=== PATIENT | female | born 1980 | race Caucasian/White ===

== ENCOUNTER 2019-01-22 12:53 | Emergency (ER) | payer BC, OTHER ==
[~2019-01-22] VITALS: Ht 170.2 cm; Wt 89.8 kg
--- NOTE | 2019-01-22 13:13 | ED Lower Extremity ---
General Chief Complaint: Lower Extremity Stated Complaint: R LEG SWELLING,HX OF BLOOD CLOTS Nursing Triage Note: PT STATES HX OF BLOOD CLOT, CC OF PAIN IN RT ANKLE/FOOT WITH SWELLING SINCE YESTERDAY. Nursing Sepsis Screen: No Definite Risk Source: patient Exam Limitations: no limitations History of Present Illness Date Seen by Provider: Jan 22, 2019 Time Seen by Provider: 13:00 Initial Comments Here with report of concerns of blood clot to the right lower extremity. 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 Does have swelling around the right foot and ankle. Is a little tenderness to her calf area when flexing her foot. Has had history of blood clots in the left lower extremity that started similar. Previously on Eliquis but not currently on that. Denies recent injury or other concerns otherwise. Onset: yesterday Severity: moderate Pain/Injury Location: right leg, right foot Method of Injury: unknown Modifying Factors: Worse With Movement; Improves With Rest Allergies and Home Medications Allergies Coded Allergies: latex (Verified Allergy, Unknown, 01/22/19) Patient Home Medication List Home Medication List Reviewed: Yes Review of Systems Constitutional: No chills, No fever Respiratory: no symptoms reported Cardiovascular: no symptoms reported Gastrointestinal: no symptoms reported Musculoskeletal: see HPI, joint pain, muscle pain Skin: change in color; No lesions Past Jjrxtnl-Yyexod-Rxdujr Hx Past Med/Social Hx: Reviewed Nursing Past Med/Soc Hx Patient Social History Alcohol Use: Occasionally Uses Recreational Drug Use: No Smoking Status: Former Smoker Recent Foreign Travel: No Contact w/Someone Who Travel: No Recent Infectious Disease Expo: No Past Medical History Surgeries: Yes Abdominal, Tubal Ligation Respiratory: No Cardiac: Yes Deep Vein Thrombosis Neurological: No [employer] History: Tubal Ligation Gastrointestinal: No Musculoskeletal: No Endocrine: No Cancer: No Psychosocial: No Family Medical History Reviewed Nursing Family Hx No Pertinent Family Hx Physical Exam Vital Signs Vital Signs - First Documented 01/22/19 13:01 Temp 98.6 Pulse 83 Resp 20 B/P (MAP) 154/97 (116) Pulse Ox 98 O2 Delivery Room Air Capillary Refill : Less Than 3 Seconds Height, Weight, BMI Height: 5'7.00" Weight: 198lbs. oz. 89.078977tb; BMI Method:Stated General Appearance: WD/WN, no apparent distress Cardiovascular: regular rate, rhythm, no murmur Respiratory: lungs clear, normal breath sounds Legs: left leg non-tender, left leg normal inspection, left leg normal range of motion; right leg swelling, right leg other (mild diffuse around the distal leg/ankle and heel of the foot. Mild swelling noted in the same distribution.) Feet: left foot non-tender, left foot normal inspection; bilateral foot normal range of motion; right foot swelling Neurologic/Psychiatric: alert, oriented x 3 Skin: normal color, warm/dry Progress/Results/Core Measures Results/Orders Lab Results Laboratory Tests Test 01/22/19 13:15 Range/Units White Blood Count 7.2 4.3-11.0 10^3/uL Red Blood Count 4.32 L 4.35-5.85 10^6/uL Hemoglobin 12.4 11.5-16.0 G/DL Hematocrit 37 35-52 % Mean Corpuscular Volume 87 80-99 FL Mean Corpuscular Hemoglobin 29 25-34 PG Mean Corpuscular Hemoglobin Concent 33 32-36 G/DL Red Cell Distribution Width 14.7 H 10.0-14.5 % Platelet Count 263 130-400 10^3/uL Mean Platelet Volume 10.4 7.4-10.4 FL Neutrophils (%) (Auto) 60 42-75 % Lymphocytes (%) (Auto) 32 12-44 % Monocytes (%) (Auto) 6 0-12 % Eosinophils (%) (Auto) 2 0-10 % Basophils (%) (Auto) 0 0-10 % Neutrophils # (Auto) 4.3 1.8-7.8 X 10^3 Lymphocytes # (Auto) 2.3 1.0-4.0 X 10^3 Monocytes # (Auto) 0.4 0.0-1.0 X 10^3 Eosinophils # (Auto) 0.2 0.0-0.3 10^3/uL Basophils # (Auto) 0.0 0.0-0.1 10^3/uL Sodium Level 141 135-145 MMOL/L Potassium Level 3.8 3.6-5.0 MMOL/L Chloride Level 109 H 98-107 MMOL/L Carbon Dioxide Level 24 21-32 MMOL/L Anion Gap 8 5-14 MMOL/L Blood Urea Nitrogen 8 7-18 MG/DL Creatinine 0.97 0.60-1.30 MG/DL Estimat Glomerular Filtration Rate > 60 BUN/Creatinine Ratio 8 Glucose Level 103 70-105 MG/DL Calcium Level 9.1 8.5-10.1 MG/DL Corrected Calcium 9.2 8.5-10.1 MG/DL Total Bilirubin 0.3 0.1-1.0 MG/DL Aspartate Amino Transf (AST/SGOT) 17 5-34 U/L Alanine Aminotransferase (ALT/SGPT) 14 0-55 U/L Alkaline Phosphatase 98 40-136 U/L Total Protein 6.8 6.4-8.2 GM/DL Albumin 3.9 3.2-4.5 GM/DL My Orders Orders - GUNJAN HARVEY MD Cbc With Automated Diff (01/22/19 13:06) Comprehensive Metabolic Panel (01/22/19 13:06) Us Venous Lower Ext Rt (01/22/19 13:06) Vital Signs/I&O 01/22/19 13:01 Temp 98.6 Pulse 83 Resp 20 B/P (MAP) 154/97 (116) Pulse Ox 98 O2 Delivery Room Air Blood Pressure Mean: 116 Progress Progress Note : Progress Note Seen and evaluated. Labs and ultrasound right lower extremity ordered. Monitor patient. 1430: No acute findings on ultrasound. Labs look okay as well. Patient will treat as if this is joint disorder but will add a baby aspirin daily given her multiple trips that she is taking and she'll follow with her Dr. in [place], [place]. Discharged home with return precautions. Patient verbalize understanding instructions and agreement with plan. Diagnostic Imaging Diagonstic Imaging: Ultrasound Plain Films/CT/US/NM/MRI: leg Comments [facility], [place] NAME: JOSUE KHAN [facility] REC#: [id number] PT STATUS: REG ER : 1980 PHYSICIAN: GUNJAN HARVEY MD ADMIT DATE: 01/22/19/ER Draft Date of Exam:01/22/19 US VENOUS LOWER EXT RT EXAM: US VENOUS LOWER EXT RT INDICATION: Right lower extremity pain and swelling. COMPARISON: None. TECHNIQUE: Duplex, limon-scale and color-flow imaging of the right lower extremity venous system was performed FINDINGS: The right common femoral vein, superficial femoral vein, profunda femoris, and popliteal veins are normal. These vessels show normal compressibility, color flow, and doppler augmentation. The deep calf veins demonstrate no distinct intraluminal thrombus where seen. IMPRESSION: Negative venous Doppler of the right lower extremity. Dictated on workstation # [id number] Dict: 01/22/19 1406 Trans: 01/22/19 1410 [facility] [id number] Interpreted by: ELLYN THOMAS MD Electronically signed by: Departure Impression Primary Impression: Swelling of right foot Additional Impression: Right ankle swelling Disposition: HOME, SELF-CARE Condition: Improved Departure-Patient Inst. Decision time for Depature: 14:36 Referrals: NO,LOCAL PHYSICIAN (PCP/Family) Primary Care Physician Patient Instructions: Dependent Edema (DC) Add. Discharge Instructions: All discharge instructions reviewed with patient and/or family. Voiced understanding. You may take ibuprofen 600 mg every 8 hours as needed for pain and swelling. You may take a baby aspirin daily to help prevent blood clots. Discussed this with y our doctor. You may take Tylenol/acetaminophen 1000 mg every 8 hours as needed for pain. Use elevation and ice packs as needed to reduce swelling in the foot. Wear comfortable shoes. Follow-up with your Dr. in a few days for recheck. Return for worse pain, fever, weakness, breathing problems, increased swelling or pain in the leg or other concerns as needed. GUNJAN HARVEY MD Jan 22, 2019 13:13
[2019-01-22 13:31] LABS: BASOPHILS % (AUTO) 0 % (0-10); EOSINOPHILS # (AUTO) 0.2 10^3/uL (0.0-0.3); EOSINOPHILS % (AUTO) 2 % (0-10); HEMATOCRIT 37 % (35-52); HEMOGLOBIN 12.4 G/DL (11.5-16.0); LYMPHOCYTES # (AUTO) 2.3 X 10^3 (1.0-4.0); LYMPHOCYTES % (AUTO) 32 % (12-44); MEAN CORPUSCULAR HEMOGLOBIN 29 PG (25-34); MEAN CORPUSCULAR HGB CONC 33 G/DL (32-36); MEAN CORPUSCULAR VOLUME 87 FL (80-99); MEAN PLATELET VOLUME 10.4 FL (7.4-10.4); MONOCYTES # (AUTO) 0.4 X 10^3 (0.0-1.0); MONOCYTES % (AUTO) 6 % (0-12); NEUTROPHILS # (AUTO) 4.3 X 10^3 (1.8-7.8); NEUTROPHILS % (AUTO) 60 % (42-75); PLATELET COUNT 263 10^3/uL (130-400); RED CELL DISTRIBUTION WIDTH 14.7 % (10.0-14.5); WHITE BLOOD COUNT 7.2 10^3/uL (4.3-11.0)
[2019-01-22 13:48] LABS: ALANINE AMINOTRANSFERASE 14 U/L (0-55); ALBUMIN 3.9 GM/DL (3.2-4.5); ALKALINE PHOSPHATASE 98 U/L (40-136); BILIRUBIN,TOTAL 0.3 MG/DL (0.1-1.0); BUN/CREATININE RATIO 8; CALCIUM 9.1 MG/DL (8.5-10.1); CARBON DIOXIDE 24 MMOL/L (21-32); CHLORIDE 109 MMOL/L (98-107); CREATININE SERUM 0.97 MG/DL (0.60-1.30); GFR ESTIMATED > 60; GLUCOSE 103 MG/DL (70-105); POTASSIUM 3.8 MMOL/L (3.6-5.0); SODIUM 141 MMOL/L (135-145); TOTAL PROTEIN 6.8 GM/DL (6.4-8.2)
--- NOTE | 2019-01-22 14:10 | Diagnostic Imaging Report ---
EXAM: US VENOUS LOWER EXT RT INDICATION: Right lower extremity pain and swelling. COMPARISON: None. TECHNIQUE: Duplex, limon-scale and color-flow imaging of the right lower extremity venous system was performed FINDINGS: The right common femoral vein, superficial femoral vein, profunda femoris, and popliteal veins are normal. These vessels show normal compressibility, color flow, and doppler augmentation. The deep calf veins demonstrate no distinct intraluminal thrombus where seen. IMPRESSION: Negative venous Doppler of the right lower extremity. Dictated by: Dictated on workstation # [id number]
[2019-01-22 14:45] VITALS: BP 122/74
== END 2019-01-22 14:45 | disposition home or self-care (01) ==
LOC: ER 12:55
DX: M25.471 Effusion, right ankle (principal); Z91.040 Latex allergy status; Z87.891 Personal history of nicotine dependence; Z86.718 Personal history of other venous thrombosis and embolism; Z98.51 Tubal ligation status; Z98.890 Other specified postprocedural states
CPT/HCPCS: 36415; 80053; 85025